=== PATIENT | male | born 2000 | race Two or more races ===

== ENCOUNTER 2023-03-14 16:02 | Emergency (ER) | payer OTHER ==
[~2023-03-14] VITALS: Ht 172.7 cm; Wt 73.9 kg
[~2023-03-14 16:02] MED LIST: NASONEX17 GM NS; ZYRTEC10 MG PO
== END 2023-03-14 17:25 | disposition home or self-care (01) ==
LOC: ER 16:02
DX: S50.861A Insect bite (nonvenomous) of right forearm, initial encounter (principal); W57.XXXA Bitten or stung by nonvenomous insect and other nonvenomous arthropods, initial encounter